=== PATIENT | male | born 1990 | race Caucasian/White ===

== ENCOUNTER 2019-03-13 10:29 | Outpatient (CLI) | payer OTHER ==
[2019-03-13 11:02] VITALS: BP 100/60
--- NOTE | 2019-03-13 11:02 | CONSULTATION NOTE ---
Information from patient questionnaire entered by Sania Petit. I have reviewed and concur with the information entered by Sania Petit. This document represents the service I personally performed and the decisions made by me, Catie Juares MD, [facility]. - History of Present Illness Chief Complaint: Unrefreshed sleep, Snoring, Excessive daytime sleepiness, Frequent awakenings at night, Other (referred for abnormal heart beat.) The patient tells me that he normally goes to bed around 10:30 pm, and it takes him approximately 10-20 minutes to fall asleep. He has been told that he snores loudly and irregularly at night. He has been observed to stop breathing in his sleep. His can still sleep in the same bed. He can recall waking up on the average of 2 times during the night. Most of the time he wakes up because of pain. He has occasionally awakened for his own snoring. There is a lot of tossing and turning in his sleep. Generally he can recall having dreams. He usually wakes up at 6:20-7:20 am and does not feel refreshed. He usually does not have a morning headache. During the day he complains of feeling sleepy and fatigued. He has fallen asleep while driving and has gone out of the brittany. He usually does not take naps during the day. If he naps, upon falling asleep during the day he denies having vivid dreams. There is somniloquy (sleep talking) but not somnambulism (sleep walking). He reports some difficulty with concentration during the day. [place] Sleepiness Scale Score: 10 - Past Medical History Past Medical History: Arrythmia - Allergies/Home Medications Medications: None Allergies: NKDA Allergies and home medications reviewed: Yes - Social History The patient's occupation is a AT. Patient is and lives in [place]. Smoked in the past 12 months: No Alcohol use: Yes Amount and frequency: 2-3 drinks per month Caffeine use: Yes Amount and frequency: 1 per day - Family History Family history of sleep disordered breathing: No - Review of Systems Cardiovascular: reports: palpitations, irregular heart rate or pulse Respiratory: denies: shortness of breath, wheeze, sputum production, chronic cough, other: Gastrointestinal: reports: heartburn. denies: difficulty swallowing, nausea, vomitting, diarrhea, abdominal pain, other: Urinary: denies: incontinence, frequency, urgency, impotence, other: Neurological: denies: headaches, seizure, head trauma, disorientation, speech dysfunction, gait or balance problems, fainting or unconsciousness, other: Psychiatric: reports: Attention Deficit Hyperactivity Ear/Nose/Throat: reports: sinus problems, nose bleeds, wisdom teeth removed Endocrine: denies: thyroid disease, history of goiter, sluggishness, too hot or cold, excessive thirst, increased appetite, increased urination, unexplained weakness, other: Musculoskeletal: reports: neck pain, back pain, muscle pain or cramping - Physical Examination Vital signs obtained and documented by: Dr. Juares Blood Pressure: 100/60 Cuff size: regular Heart Rate: 82 (regular) O2 Saturation: 98 Height: 6 ft 3 in Weight (kg): 124.284 kg Body Mass Index: 34.2 BMI Classification: Class 1 Neck circumference: 17 Mood/affect: normal HEENT: No craniofacial malformation Nostrils: patent to airflow Turbinates: normal Septum: deviated left Mouth and throat: narrow oropharynx Soft palate: long Hard palate: normal Uvula: normal Tongue: normal in size Tonsils: 1+ Chin and jaw: normal size and position Neck: normal w/o lymphadenopathy or thyromegaly Heart: regular rate and rhythm Lungs: clear bilaterally Abdomen: soft Extremities: 1+ edema Neurologic: intact - Impression 1. Suspected Obstructive Sleep Apnea-Hypopnea Syndrome, as suggested by a history of loud and irregular snoring, observed cessation of breath while asleep, unrefreshed sleep, cognitive impairment, and excessive daytime sleepiness. Narrow oropharynx and obesity are common predisposing factors for obstructive sleep apnea-hypopnea syndrome. I recommend proceeding to polysomnography to confirm the diagnosis and to assess severity. If the patient has significant sleep disordered breathing, a manual CPAP titration study will also be performed to find the optimal treatment pressure. I informed the patient of what the sleep studies involve and after some discussion, obtained agreement to proceed. The pathophysiology of obstructive sleep apnea-hypopnea syndrome was discussed with the patient and health risks of cardiovascular and cerebrovascular disease if not treated. Risks of drowsy driving discussed in detail and patient advised to avoid long distance driving and to lung puller at the first sign of drowsiness. Patient agreed to plan. - Plan Schedule polysomnography +/- manual CPAP titration study and return in 1-2 weeks after the study to discuss result and initiate therapy. Avoid long distance driving or driving when feeling sleepy. Avoid alcohol, sedative and muscle relaxant around bedtime. Attempt to lose weight. Review instructions provided by trained office staff on how to prepare for the sleep study. Return for follow-up after sleep study completed. I spent 100% of this 15 minute visit face to face with the patient with greater than 50% of this was spent time counseling the patient and coordination of care.
== END 2019-03-13 10:30 | disposition home or self-care (01) ==
LOC: SC 10:29
PROVIDERS: ATTEND Internal Medicine Pulmonary Disease
DX: R06.83 Snoring (principal); R06.81 Apnea, not elsewhere classified; G47.8 Other sleep disorders; R41.89 Other symptoms and signs involving cognitive functions and awareness; G47.10 Hypersomnia, unspecified
CPT/HCPCS: 99203; 99212

== ENCOUNTER 2019-03-29 20:34 | Outpatient (CLI) | payer OTHER | END 2019-03-29 20:35 | disposition home or self-care (01) | LOC: SC 20:34 | PROVIDERS: ATTEND Internal Medicine Pulmonary Disease | DX: G47.33 Obstructive sleep apnea (adult) (pediatric) (principal); G47.61 Periodic limb movement disorder; E66.9 Obesity, unspecified; Z68.34 Body mass index [BMI] 34.0-34.9, adult | CPT/HCPCS: 95810 ==

== ENCOUNTER 2019-04-26 08:16 | Outpatient (CLI) | payer OTHER ==
[2019-04-26 09:10] VITALS: BP 108/68
--- NOTE | 2019-04-26 09:10 | SLEEP CARE CONSULTATION ---
Information from patient questionnaire entered by Neva Cruz. I have reviewed and concur with the information entered by Neva Cruz. This document represents the service I personally performed and the decisions made by me, Karen Slade RN, MSN, [employer] TECHNICIAN. History of Present Illness Initial [place] Sleepiness Scale score: 10 Current [place] Sleepiness Scale score: 10 Additional HPI information: ZAYNAB NINO returns for follow up of the recently performed polysomnography and informed of the polysomnography findings. I explained the pathophysiology behind obstructive sleep apnea. We then spent quite a bit of time discussing different treatment options. For mild obstructive sleep apnea, surgery and oral appliance are alternatives to nasal CPAP therapy but in moderate or severe cases, nasal CPAP is the most effective and reliable treatment. Because apnea is primarily in supine position, then positional management therapy could be effective. Methods discussed such as positioning with pillows, using a T-shirt with tennis balls in the back, and shown commercial products that have a pillow format on back to prevent supine sleep. I reviewed the impact of weight changes on sleep apnea and strongly recommended losing weight. After some discussion, the patient opted to go with the nasal CPAP therapy. Nasal autoCPAP set at [id number] will be ordered with rationale explained. A manual titration study will be ordered if unable to find optimal pressure with office adjustments. I explained how CPAP machine works with sample devices Respironics Dreamstation and ResMed [id number] and what to expect when using the machine. Patient chose to use the Dreamstation. Using CPAP every night in order to get used to it was emphasized. Patient advised to put CPAP mask on before getting into bed so as not to fall asleep without CPAP. To assist acclimation to CPAP use, it could also be used for a short time during day while reading or watching TV. The patient was instructed to call the CPAP supplier to discuss any mechanical problem that may occur. If the mask given is uncomfortable or is difficult to keep on through the night even with adjustment, contact the CPAP supplier as many will replace with another mask style if notified before 30 days. If snoring or perceives is not getting enough air or too much air from the machine, notify this office. [facility] patient education PAP tips reviewed and given to patient. Patient counseled not drink alcohol less than 4 hours before bedtime as it can increase snoring and apnea. Patient was cautioned about risks of drowsy driving until sleepiness symptoms resolve. Patient denies drowsy driving. [facility] patient education on snoring and sleep apnea given and reviewed. Sleep Study - Polysomnography Polysomnography findings: The quality of the study is good. The patient had normal sleep efficiency. Except for mild sleep fragmentation, the sleep architecture was normal as well. Respiratory monitoring showed moderate obstructive sleep apnea-hypopnea (AHI = 23.5) associated with frequent arousals, oxyhemoglobin desaturation and mild hypoxia (christiano oxygen saturation of 85%). The respiratory events occurred almost exclusively during supine sleep (supine AHI = 47.2; non-supine = 3.64). Snore was light in intensity. There was mild periodic leg movement of sleep not contributing to the sleep fragmentation. Cardiac rhythm was normal sinus rhythm without significant arrhythmia. The patient had bruxism. Allergies and Home Medications Known drug allergies: No Home medication list reviewed: Yes (none) Review of Systems Review of systems same as previous: Yes Physical Exam Blood Pressure: 108/68 Cuff size: long Heart Rate: 90 O2 Saturation: 98 Height: 6 ft 2 in Weight (kg): 124.738 kg Body Mass Index: 35.3 BMI Classification: Class 2 Impression and Plan 1. Obstructive Sleep Apnea-Hypopnea Syndrome, moderate, with lowest oxygen saturation of 85%. Obviously this is the cause of the patients symptoms of unrefreshed sleep, and excessive daytime sleepiness. Positive pressure therapy could benefit his arrhythmia. As mentioned above, the patient will be started on nasal autoCPAP therapy with pressure set at 4-15 cmH2O. A manual titration study will be completed if unable to find optimal treatment pressure with office adjustments. Compliance guidelines also reviewed. A copy of compliance guidelines will be given for reference at check out. Because the apnea is more severe supine, I instructed to avoid sleeping supine using pillow positioning until able to start CPAP use. 2. Periodic limb movement, mild, that did not fragment patients sleep. Periodic limb movement of sleep (PLMS) is characterized by episodes of repetitive limb movements that occur during sleep and usually involve the lower limbs. The etiology is unknown but can be associated with restless leg syndrome (RLS), neuropathy, spinal cord diseases, kidney disease, rheumatological disorders, narcolepsy, obstructive sleep apnea, and REM sleep behavior disorder. Other factors that can increase PLMS and/or RLS are heredity and iron deficiency as reflected by a low serum ferritin level below 50 to 75mcg / L. Several medications can precipitate or aggravate PLMS such as selective serotonin re- uptake inhibitor antidepressants, tricyclic antidepressants, lithium, and dopamine receptor antagonists with the exception of bupropion. Caffeine can also aggravate PLMS and should be avoided. Sleep hygiene methods can also improve sleep as well as lifestyle changes such as regular exercise. Patient was advised that no treatment is needed at this time. If symptoms increase, then further evaluation is indicated. 3. Bruxism, patient advised to follow up with his dentist for evaluation and t reatment. He was also informed how apnea has a low risk association with bruxism. * Nasal auto CPAP therapy, pressure at 4-15cm H2O. Dreamstation patient preference. * Attempt to lose weight. * Avoid alcohol consumption near bedtime. * Avoid supine sleep until using CPAP. * The patient is again cautioned about driving until sleepiness completely resolves. * Follow up with dentist to evaluate and treat bruxism * Return one month after CPAP obtained. I will assess response to therapy and compliance at that time. I spent 100% of this 40 minute visit face to face with the patient with greater than 50% of this was spent time counseling the patient and coordination of care.
== END 2019-04-26 08:17 | disposition home or self-care (01) ==
LOC: SC 08:16
PROVIDERS: ATTEND Nurse Practitioner Family
DX: G47.33 Obstructive sleep apnea (adult) (pediatric) (principal); G47.61 Periodic limb movement disorder; G47.63 Sleep related bruxism
CPT/HCPCS: 99212; 99214

== ENCOUNTER 2019-06-28 10:11 | Outpatient (CLI) | payer OTHER ==
[2019-06-28 11:17] VITALS: BP 118/78
--- NOTE | 2019-06-28 11:17 | SLEEP CARE CONSULTATION ---
Information from patient questionnaire entered by Sania Petit. I have reviewed and concur with the information entered by Sania Petit. This document represents the service I personally performed and the decisions made by me, Karen Slade, RN, MSN, WINDOWS SERVER ENGINEER. History of Present Illness Previous diagnosis: Moderate, Obstructive Sleep Apnea-Hypopnea Syndrome AHI: 23.5 Reason for follow up: first compliance Equipment type: CPAP Equipment obtained from: [employer] Mask style: Nasal Mask brand: Respironics (Dreamwear) Backup mask available: No Last cushion change: 1 week ago Prior sleep studies: Yes CPAP Compliance Data - Data Reviewed with Patient Average duration of nightly device use: 2H 53M Compliance rate %: 12.8 Current pressure setting (cmH2O): 4-15 Humidity settin Heated hose settin Average residual AHI: 2.3 Average large leak: 1M 23S Subjective Missed days of use due to: reports: other (cold and nasal congestion and pressure discomfort) Patient concerns: reports: mask discomfort (unsure as wakes with mask off ), nasal congestion (interferring with use of CPAP), dry mouth, nose, throat (not initially but later in treatment. The settings were changed but not by patient and he wonders if his toddler has been changing settings ), epistaxis, other (Hard to exhale - C Flex is set at 3 ). denies: aerophagia, air blowing in eyes, mask leak noise, condensation in mask/hose Observed to snore while using device: No Current pressure setting perceived as: comfortable On therapy, patient: reports: drowsiness while driving (tired but not drowsy - knows to mold puller). denies: sleeping better, awakening more refreshed, being more awake and alert during the day, more rested overall (no change ) Initial [place] Sleepiness Scale score: 10 Current [place] Sleepiness Scale score: 13 Allergies and Home Medications Known drug allergies: No Home medication list reviewed: No (no meds) Review of Systems Review of systems same as previous: No (viral infection) Physical Exam Blood Pressure: 118/78 Cuff size: long Heart Rate: 95 O2 Saturation: 98 Height: 6 ft 2 in Weight: 275 lb 9.6 oz Body Mass Index: 35.4 BMI Classification: Obesity Class 2 Nasal exam: positive: erythema, other (dryness and mild septum deviation with narrowing of left nare) Impression and Plan 1. Obstructive Sleep Apnea-Hypopnea Syndrome, moderate, with poor treatment compliance and good apnea control. On CPAP therapy, the patient has noted no change but is unable to tolerate currently due to nasal dryness and difficulty exhaling. For his dryness symptoms, he was shown how to increase the humidity to 5 and reduce the heated hose to 2 on sample CPAP and instructed rationale rationale for changing. The heated hose only needs to be raised if condensation. This should also reduce epitaxis incidence. He has a history of nose bleeds especially season changes. Nasal exam showed mild erythema and dryness and given Cherise Ease nasal cream. This is to be used 4 times a day for 7-10 days and then as needed. Printed instructions given. For nasal congestion, the higher humidity will assist as well as using the saline nasal spray given to clear nose of dried secretions. For comfort of pressure even with CFlex of 3 maximum, I will reduce his autoCPAP to 4-6cmH20. He is to contact me if uncomfortable. In addition, since it is hard to breathe out of his nose most of the time with or without congestion due to deviation, I will fit him with a full face mask. The Dreamwear was chosen by patient. A medium cushion fit best. Since he just obtained new supplies from [employer], he is advised to contact to return unused and to inform of new mask choice. A prescription also made. Patient's apnea severity and rationale for treatment to reduce apnea, improve sleep quality and reduce cardiovascular and cerebrovascular events was reviewed. I also reviewed if unable to use CPAP , he is to avoid sleeping supine where his apnea is more severe. Hopefully the above measures will assist patient to be more successful with treatment. He is also going to find a way for toddler not to touch his CPAP. * * Change CPAP pressure to 4-6 cmH2O * Implement methods to reduce nasal symptoms * Try new Dreamwear full face mask. * Notify me if snoring with mask or feeling that the pressure is too much or too little * Attempt to lose weight * Return for follow up in 1-2 months, or sooner if concerns arise I spent 100% of this 40 minute visit face to face with the patient with greater than 50% of this was spent time counseling the patient and coordination of care.
== END 2019-06-28 10:12 | disposition home or self-care (01) ==
LOC: SC 10:11
PROVIDERS: ATTEND Nurse Practitioner Family
DX: G47.33 Obstructive sleep apnea (adult) (pediatric) (principal); E66.9 Obesity, unspecified; Z68.35 Body mass index [BMI] 35.0-35.9, adult
CPT/HCPCS: 99212; 99215